=== PATIENT | male | born 1985 | race Caucasian/White ===

== ENCOUNTER 2021-03-13 02:07 | Emergency (ER) | payer OTHER ==
[~2021-03-13] VITALS: Ht 180.3 cm; Wt 99.8 kg
[2021-03-13 02:50] LABS: INR 1.01 (0.9-1.2); PROTHROMBIN TIME 12.7 SECONDS (11.8-13.4); PTT 25.4 SECONDS (24.4-34.7)
[2021-03-13 02:52] LABS: D-DIMER 0.27 ug/mLFEU (0.00-0.41)
[2021-03-13 02:57] LABS: ALBUMIN 4.2 g/dL (3.4-5.0); BILIRUBIN - TOTAL 0.2 mg/dL (0.2-1.0); BUN/CREAT RATIO (CALC) 10.5 RATIO; CREATININE 1.14 mg/dL (0.67-1.17); GLOBULIN (CALCULATION) 3.6 g/dL; MAGNESIUM 1.9 mg/dL (1.8-2.4); PHOSPHORUS 3.6 mg/dL (2.6-4.7); TOTAL PROTEIN 7.8 g/dL (6.4-8.2)
[2021-03-13 03:07] LABS: BASOPHIL 0.7 % (0-2); EOSINOPHIL 0.8 % (0-5); HCT 49.7 % (42.0-52.0); HGB 16.6 g/dl (13.2-18.0); LYMPHOCYTE 31.3 % (15-48); MCH 28.7 pg (25.0-31.0); MCHC 33.4 g/dL (32.0-36.0); MCV 85.8 fL (78.0-100.0); MONOCYTE 7.2 % (0-12); MPV 9.8 fL (6.0-9.5); NEUTROPHIL 59.2 % (41-80); NRBC 0; PLT 320 K/uL (150-400); RBC 5.79 M/uL (4.70-6.00); RDW 12.6 % (11.5-14.0); WBC 9.8 K/uL (4.0-10.5)
[2021-03-13 06:54] LABS: AMPHETAMINES NEGATIVE (NEGATIVE); BARBITURATES NEGATIVE (NEGATIVE); ECSTASY (MDMA) NEGATIVE (NEGATIVE); MARIJUANA (THC) NEGATIVE (NEGATIVE); METHADONE NEGATIVE (NEGATIVE); OPIATES POSITIVE (NEGATIVE); OXYCODONE NEGATIVE (NEGATIVE)
[2021-03-13 06:58] LABS: FT4 (FREE T4) 0.8 ng/dL (0.76-1.46)
[2021-03-13] MEDS ORDERED: ATIVAN1 MG PO (07:38)
== END 2021-03-13 07:47 | disposition home or self-care (01) ==
LOC: FER 02:07
PROVIDERS: Emergency Medicine Emergency Medical Services
DX: R07.89 Other chest pain (principal); R06.02 Shortness of breath; J45.909 Unspecified asthma, uncomplicated
CPT/HCPCS: 36415; 71045; 71275; 80053; 80305; 83735; 84100; 84439; 84443; 84484; 85025; 85379; 85610; 85730; 93005; 94640; 94664; J2060; J2270; J2405; J2930; J7030; Q9967

== ENCOUNTER 2021-06-24 00:51 | Emergency (ER) | payer OTHER ==
[~2021-06-24 00:51] MED LIST: ATIVAN1 MG PO
[2021-06-24 02:41] LABS: BASOPHIL 0.4 % (0-2); EOSINOPHIL 0.3 % (0-5); HCT 42.1 % (42.0-52.0); LYMPHOCYTE 15.5 % (15-48); MCH 28.5 pg (25.0-31.0); MCHC 33.3 g/dL (32.0-36.0); MCV 85.7 fL (78.0-100.0); MONOCYTE 5.7 % (0-12); MPV 10.1 fL (6.0-9.5); NRBC 0; PLT 241 K/uL (150-400); RBC 4.91 M/uL (4.70-6.00); RDW 12.5 % (11.5-14.0); WBC 7.4 K/uL (4.0-10.5)
[2021-06-24 03:05] LABS: BUN/CREAT RATIO (CALC) 14.5 RATIO; CREATININE 0.76 mg/dL (0.67-1.17); POTASSIUM 3.9 mmol/L (3.5-5.1)
[2021-06-24 03:13] LABS: AMPHETAMINES NEGATIVE (NEGATIVE); BARBITURATES NEGATIVE (NEGATIVE); BILIRUBIN NEGATIVE (NEGATIVE); BLOOD NEGATIVE Ery/uL (NEGATIVE); CLARITY CLEAR (CLEAR); COLOR YELLOW (YELLOW); ECSTASY (MDMA) NEGATIVE (NEGATIVE); GLUCOSE (U) NORMAL (NORMAL); LEUKOCYTES NEGATIVE Leu/uL (NEGATIVE); MARIJUANA (THC) NEGATIVE (NEGATIVE); METHADONE NEGATIVE (NEGATIVE); NITRITE NEGATIVE (NEGATIVE); OPIATES NEGATIVE (NEGATIVE); OXYCODONE NEGATIVE (NEGATIVE); PROTEIN NEGATIVE (NEGATIVE); SPECIFIC GRAVITY >=1.030 (1.001-1.030); UROBILINOGEN 0.2 mg/dL (0.2-1.0)
== END 2021-06-24 08:14 | disposition home or self-care (01) ==
LOC: FER 00:51
PROVIDERS: Emergency Medicine Emergency Medical Services
DX: K62.89 Other specified diseases of anus and rectum (principal); K57.30 Diverticulosis of large intestine without perforation or abscess without bleeding; J45.909 Unspecified asthma, uncomplicated; E66.01 Morbid (severe) obesity due to excess calories
CPT/HCPCS: 36415; 80048; 80305; 81003; 83605; 84145; 85025; J7030; Q9967

== ENCOUNTER → 2021-07-14 | Day surgery (SDC) | payer OTHER ==
[~2021-07-14] VITALS: Ht 180.3 cm; Wt 79.4 kg
[~2021-07-14] MED LIST changes: +FIBER PO; +OMEPRAZOLE40 MG PO
[2021-07-14 12:40] LABS: HCT 46.9 % (42.0-52.0); HGB 15.5 g/dl (13.2-18.0); MCH 28.2 pg (25.0-31.0); MCV 85.4 fL (78.0-100.0); MPV 10.1 fL (6.0-9.5); RBC 5.49 M/uL (4.70-6.00); RDW 12.4 % (11.5-14.0)
[2021-07-14 13:20] LABS: ALBUMIN 4.3 g/dL (3.4-5.0); BILIRUBIN - TOTAL 0.5 mg/dL (0.2-1.0); BUN/CREAT RATIO (CALC) 12.2 RATIO; CREATININE 0.98 mg/dL (0.67-1.17); GLOBULIN (CALCULATION) 3.5 g/dL; POTASSIUM 4.3 mmol/L (3.5-5.1); TOTAL PROTEIN 7.8 g/dL (6.4-8.2)
== END | disposition home or self-care (01) ==
LOC: FAS 10:49
PROVIDERS: Surgery
DX: K29.70 Gastritis, unspecified, without bleeding (principal); K29.80 Duodenitis without bleeding; B96.81 Helicobacter pylori [H. pylori] as the cause of diseases classified elsewhere; J45.909 Unspecified asthma, uncomplicated; F17.290 Nicotine dependence, other tobacco product, uncomplicated; Z91.030 Bee allergy status
CPT/HCPCS: 36415; 80053; 83525; J2704; J7120